=== PATIENT | male | born 1960 | race African-American/Black ===

== ENCOUNTER 2017-01-11 00:41 | Observation (INO) | payer OTHER ==
--- NOTE | 2017-01-11 00:50 | PDOC ---
History of Present Illness - General History Source: Patient Exam Limitations: No Limitations <Nico Berger - Last Filed: 01/11/17 01:11> <Lyssa Acuna - Last Filed: 01/11/17 07:07> <Fara Carlton - Last Filed: 01/11/17 20:28> - General Stated Complaint: CHEST PAIN - History of Present Illness Initial Comments: 01/11/17 01:09 The patient is a 56 year old male, with a significant PMH of diabetes who presents to the emergency department with chest pain beginning approximately 1 hour ago. The patient describes the pain as beginning in the epigastric area and radiating up through the midsternal chest area to his upper back, 5/10 in severity. The patient was hypotensive when he was found at home, and his glucose was at 44 upon presentation to the ED. He reports not eating dinner and was given oral glucose shortly after presentation. The patient denies shortness of breath, headache and dizziness. Denies fever, chills, nausea, vomit, diarrhea and constipation. Denies dysuria, frequency, urgency and hematuria. Allergies: Penicillins. Ibuprofen Past surgical history: None reported. Social history: Moderate smoker (5/day). Occasional alcohol use. No reported drug use. (Nico Berger) Past History <Nico Berger - Last Filed: 01/11/17 01:11> <Lyssa Acuna - Last Filed: 01/11/17 07:07> <Fara Carlton - Last Filed: 01/11/17 20:28> - Past Medical History Allergies/Adverse Reactions: Allergies Allergy/AdvReac Type Severity Reaction Status Date / Time ibuprofen Allergy Unknown Verified 01/11/17 15:15 Penicillins Allergy Verified 01/11/17 01:06 Home Medications: Ambulatory Orders Amlodipine Besylate 10 mg PO DAILY 01/11/17 Aspirin [ASA -] 81 mg PO DAILY 01/11/17 Gabapentin [Neurontin] 400 mg PO QID 01/11/17 Gemfibrozil [Lopid] 600 mg PO BID 01/11/17 Hydrocodone/Acetaminophen [[place]arrow 7.5-325 Tablet] 1 each PO DAILY 01/11/17 Metformin HCl 500 mg PO BID 01/11/17 Metoprolol Tartrate [Lopressor -] 25 mg PO DAILY 01/11/17 Review of Systems <Nico Berger - Last Filed: 01/11/17 01:11> <Lyssa Acuna - Last Filed: 01/11/17 07:07> <Fara Carlton - Last Filed: 01/11/17 20:28> - Review of Systems Comments:: 01/11/17 01:09 CONSTITUTIONAL: Absent: fever, chills, diaphoresis, generalized weakness, malaise, loss of appetite HEENT: Absent: rhinorrhea, nasal congestion, throat pain, throat swelling, difficulty swallowing, mouth swelling, ear pain, eye pain, visual Changes CARDIOVASCULAR: (+) Midsternal chest pain, radiates from epigastric area up to the upper back. Absent: syncope, palpitations, irregular heart rate, lightheadedness, peripheral edema RESPIRATORY: Absent: cough, shortness of breath, dyspnea with exertion, orthopnea, wheezing, stridor, hemoptysis GASTROINTESTINAL: Absent: abdominal pain, abdominal distension, nausea, vomiting, diarrhea, constipation, melena, hematochezia GENITOURINARY: Absent: dysuria, frequency, urgency, hesitancy, hematuria, flank pain, genital pain MUSCULOSKELETAL: Absent: myalgia, arthralgia, joint swelling SKIN: Absent: rash, itching, pallor HEMATOLOGIC/IMMUNOLOGIC: Absent: easy bleeding, easy bruising, lymphadenopathy, frequent infections ENDOCRINE: Absent: unexplained weight gain, unexplained weight loss, heat intolerance, cold intolerance NEUROLOGIC: Absent: headache, focal weakness or paresthesias, dizziness, unsteady gait, seizure, mental status changes, bladder or bowel incontinence PSYCHIATRIC: Absent: anxiety, depression, suicidal or homicidal ideation, hallucinations. (Nico Berger) *Physical Exam <Nico Berger - Last Filed: 01/11/17 01:11> <Lyssa Acuna - Last Filed: 01/11/17 07:07> <Fara Carlton - Last Filed: 01/11/17 20:28> - Vital Signs Last Vital Signs Temp Pulse Resp BP Pulse Ox 99.3 F 67 18 105/64 98 01/11/17 06:05 01/11/17 14:31 01/11/17 14:31 01/11/17 14:31 01/11/17 14:31 - Physical Exam Comments: 01/11/17 01:09 GENERAL: Well developed, well nourished. Awake and alert. No acute distress. HEENT: Normocephalic, atraumatic. PERRLA, EOMI. No conjunctival pallor. Sclera are non- icteric. Moist mucous membranes. Oropharynx is clear. NECK: Supple. Full ROM. No JVD. Carotid pulses 2+ and symmetric, without bruits. No thyromegaly. No lymphadenopathy. CARDIOVASCULAR: (+) Tachycardic. No murmurs, rubs, or gallops. Distal pulses are 2+ and symmetric. PULMONARY: No evidence of respiratory distress. Lungs clear to auscultation bilaterally. No wheezing, rales or rhonchi. ABDOMINAL: Soft. Non-tender. Non-distended. No rebound or guarding. No organomegaly. Normoactive bowel sounds. MUSCULOSKELETAL Normal range of motion at all joints. No bony deformities or tenderness. No CVA tenderness. EXTREMITIES: (+) +1 pitting edema bilaterally in lower extremities. No cyanosis. No clubbing. No calf tenderness. SKIN: Warm and dry. Normal capillary refill. No rashes. No jaundice. NEUROLOGICAL: Alert, awake, appropriate. Cranial nerves 2-12 intact. No deficits to light touch and temperature in face, upper extremities and lower extremities. No motor deficits in the in face, upper extremities and lower extremities. Normoreflexic in the upper and lower extremities. Normal speech. Toes are downgoing bilaterally. Gait is normal without ataxia. PSYCHIATRIC: Cooperative. Good eye contact. Appropriate mood and affect. (Nico Berger) ED Treatment Course - LABORATORY CBC & Chemistry Diagram: 01/11/17 01:16 01/11/17 01:58 <Lyssa Acuna - Last Filed: 01/11/17 07:07> - LABORATORY CBC & Chemistry Diagram: 01/11/17 01:16 01/11/17 08:41 <Fara Carlton - Last Filed: 01/11/17 20:28> - ADDITIONAL ORDERS Additional order review: Laboratory Results 01/11/17 01/11/17 01/11/17 08:41 08:41 08:41 Creatinine Cancelled Random Glucose Specific [place] Cancelled Lactic Acid 1.1 Creatine Kinase Troponin I Cancelled Urine Color Urine Appearance Urine pH Ur Specific [place] Urine Protein Urine Glucose (UA) Urine Ketones Urine Blood Urine Nitrite Urine Bilirubin Urine Urobilinogen Urine Butalbital Cancelled Ur Butalbital Confirm Cancelled Urine Opiates Screen Cancelled Meperidine Cancelled Urine Normeperidine Cancelled U Normeperidine GC/MS Cancelled Urine Codeine Cancelled U Codeine Confrm GC/MS Cancelled Urine Morphine Cancelled Morphine Confirm GC/MS Cancelled Urine Hydrocodone Cancelled Ur Hydrocodone (GC/MS) Cancelled Oxycodone Cancelled Urine Oxycodone Cancelled Ur Oxycodone GC/MS Cancelled Oxymorphone Confirm Cancelled U Oxycodone/Oxymorphon Cancelled Ur Methadone Cancelled Ur Methadone Confirm Cancelled Ur Hydromorphone Cancelled Ur Hydromorphone (GC/MS) Cancelled Urine Propoxyphene Cancelled U Propoxyphene/M GC/MS Cancelled Ur Barbiturates Screen Cancelled Urine Barbiturates Cancelled Ur Phencyclidine (PCP) Cancelled Ur PCP Confirm (GC/MS) Cancelled Amphetamines Cancelled Amphetamines Grp GC/MS Cancelled Urine Amphetamine Cancelled Ur Amphetamines, Quant Cancelled Methamphetamine Cancelled Methamphetamine GC/MS Cancelled Urine Amobarbital Cancelled Ur Amobarbital GC/MS Cancelled Urine Pentobarbital Cancelled U Pentobarbital GC/MS Cancelled Urine Phenobarbital Cancelled U Phenobarbital GC/MS Cancelled Urine Secobarbital Cancelled U Secobarbital GC/MS Cancelled Urine Alprazolam Cancelled U [place]-Alprazolam GC/MS Cancelled U Benzodiazepines Scrn Cancelled Urine Clonazepam Cancelled U 7-Amino Clonazep GC/MS Cancelled Ur Nordiazepam Cancelled Ur Nordiazepam GC/MS Cancelled Flurazepam Cancelled Flurazepam Confirm Cancelled Lorazepam Cancelled Urine Lorazepam Cancelled Ur Oxazepam Cancelled U Oxazepam Confm GC/MS Cancelled Urine Temazepam Cancelled Ur Temazepam (GC/MS) Cancelled Urine Triazolam Cancelled Ur Triazolam (GC/MS) Cancelled Meperidine (GC/MS) Cancelled Ur Meperidine Cancelled Cocaine & Metabolite Cancelled Urine Cocaine Cancelled Benzoylecgonine Cancelled Cannabinoids Cancelled Urine Cannabinoids Cancelled Urine Marijuana (THC) Cancelled Drug Test Comment Cancelled Urine Ethyl Alcohol Cancelled 01/11/17 01/11/17 08:41 08:41 Creatinine Random Glucose 140 H Specific [place] Lactic Acid Creatine Kinase 121 Troponin I < 0.02 Urine Color Yellow Urine Appearance Clear Urine pH 5.0 Ur Specific [place] 1.015 Urine Protein Negative Urine Glucose (UA) Negative Urine Ketones 1+ H Urine Blood Negative Urine Nitrite Negative Urine Bilirubin Negative Urine Urobilinogen 2.0 Urine Butalbital Ur Butalbital Confirm Urine Opiates Screen Meperidine Urine Normeperidine U Normeperidine GC/MS Urine Codeine U Codeine Confrm GC/MS Urine Morphine Morphine Confirm GC/MS Urine Hydrocodone Ur Hydrocodone (GC/MS) Oxycodone Urine Oxycodone Ur Oxycodone GC/MS Oxymorphone Confirm U Oxycodone/Oxymorphon Ur Methadone Ur Methadone Confirm Ur Hydromorphone Ur Hydromorphone (GC/MS) Urine Propoxyphene U Propoxyphene/M GC/MS Ur Barbiturates Screen Urine Barbiturates Ur Phencyclidine (PCP) Ur PCP Confirm (GC/MS) Amphetamines Amphetamines Grp GC/MS Urine Amphetamine Ur Amphetamines, Quant Methamphetamine Methamphetamine GC/MS Urine Amobarbital Ur Amobarbital GC/MS Urine Pentobarbital U Pentobarbital GC/MS Urine Phenobarbital U Phenobarbital GC/MS Urine Secobarbital U Secobarbital GC/MS Urine Alprazolam U [place]-Alprazolam GC/MS U Benzodiazepines Scrn Urine Clonazepam U 7-Amino Clonazep GC/MS Ur Nordiazepam Ur Nordiazepam GC/MS Flurazepam Flurazepam Confirm Lorazepam Urine Lorazepam Ur Oxazepam U Oxazepam Confm GC/MS Urine Temazepam Ur Temazepam (GC/MS) Urine Triazolam Ur Triazolam (GC/MS) Meperidine (GC/MS) Ur Meperidine Cocaine & Metabolite Urine Cocaine Benzoylecgonine Cannabinoids Urine Cannabinoids Urine Marijuana (THC) Drug Test Comment Urine Ethyl Alcohol 01/11/17 01:16 RBC 4.08 MCV 97.9 H MCHC 33.6 RDW 12.7 MPV 8.6 Neutrophils % 80.4 Lymphocytes % 16.6 Monocytes % 2.4 L Eosinophils % 0.2 Basophils % 0.4 - RADIOLOGY Radiology Studies Ordered: Category Date Time Status CHEST X-RAY PORTABLE* [RAD] Stat Radiology 01/11/17 01:01 Completed - Medications Given in the ED: ED Medications Discontinued Medications Generic Name Dose Route Start Last Admin Trade Name Inderjit PRN Reason Stop Dose Admin Aspirin 162 mg 01/11/17 01:00 01/11/17 05:08 Asa - PO 01/11/17 01:01 162 mg ONCE ONE Administration Sodium Chloride 1,000 ml 01/11/17 02:30 01/11/17 05:08 Normal Saline - IV 01/11/17 02:31 1,000 ml ONCE ONE Administration *DC/Admit/Observation/Transfer <Nico Berger - Last Filed: 01/11/17 01:11> <Lyssa Acuna - Last Filed: 01/11/17 07:07> <Fara Carlton - Last Filed: 01/11/17 20:28> Diagnosis at time of Disposition: Chest pain, Hypoglycemia - Attestations Scribe Attestion: 01/11/17 01:10 Documentation prepared by Nico Berger, acting as medical operations supervisor for Faar Carlton MD. (Nico Berger)
[2017-01-11] MEDS ORDERED: ASPIRIN 81 MG CHEWABLE TABLETS PO ONE (01:00)
[2017-01-11 01:24] LABS: BASOPHIL 0.4 % (0-2.0); EOSINOPHIL 0.2 % (0-4.5); MCH 32.9 pg (25.7-33.7); MCHC 33.6 g/dl (32.0-35.9); MEAN CELL VOLUME 97.9 fl (80-96); MEAN PLT VOLUME 8.6 fl (7.5-11.1); NEUTROPHILS 80.4 % (42.8-82.8); PLATELET COUNT 161 K/MM3 (134-434); RDW 12.7 % (11.9-15.9); WHITE BLOOD COUNT 17.8 K/mm3 (4.0-10.0)
[2017-01-11 01:37] LABS: INR 2.01 (0.82-1.09); PROTHROMBIN TIME (PATIENT) 22.4 SEC (9.98-11.88)
[2017-01-11] MEDS ORDERED: SODIUM CHLORIDE 0.9% 1000 ML INFUS.BAG IV ONE (02:30)
[2017-01-11 02:42] LABS: ALBUMIN 3.5 g/dl (3.4-5.0); ALK PHOS 242 U/L (45-117); ANION GAP 19 (8-16); BILIRUBIN,TOTAL 0.7 mg/dL (0.2-1.0); CALCIUM 8.9 mg/dL (8.5-10.1); CO2 17 mmol/L (21-32); CREATININE 1.3 mg/dL (0.7-1.3); GLUCOSE,RANDOM 120 mg/dL (74-106); SGOT/AST 150 U/L (15-37); SGPT/ALT 66 U/L (12-78); TOT PROT 6.6 g/dl (6.4-8.2)
[2017-01-11 02:44] LABS: CPK 128 IU/L (39-308); TROPONIN I < 0.02 ng/ml (0.00-0.05)
[2017-01-11 03:12] LABS: CHOLESTEROL 153 mg/dL (50-200)
[2017-01-11] MEDS ORDERED: ASPIRIN 81 MG CHEWABLE TABLETS ONE (05:08)
--- NOTE | 2017-01-11 07:09 | PDOC ---
*Physical Exam - Vital Signs Last Vital Signs Temp Pulse Resp BP Pulse Ox 99.3 F 105 H 15 108/68 99 01/11/17 06:05 01/11/17 06:05 01/11/17 06:05 01/11/17 06:05 01/11/17 06:05 <KalpanaLyssa - Last Filed: 01/11/17 07:10> - Vital Signs Last Vital Signs Temp Pulse Resp BP Pulse Ox 99.3 F 105 H 15 108/68 99 01/11/17 06:05 01/11/17 06:05 01/11/17 06:05 01/11/17 06:05 01/11/17 06:05 - Physical Exam General Appearance: Yes: Nourished, Appropriately Dressed Neck: negative: Tender Respiratory/Chest: positive: Lungs Clear, Normal Breath Sounds. negative: Chest Tender Cardiovascular: positive: Regular Rhythm, Regular Rate, S1, S2 Gastrointestinal/Abdominal: positive: Normal Bowel Sounds, Flat, Soft. negative : Tender Musculoskeletal: positive: Normal Inspection Integumentary: positive: Normal Color, Dry, Warm Neurologic: positive: dental assisting instructor II-XII NML intact, Fully Oriented, Alert <Donna Antonio - Last Filed: 01/11/17 08:27> ED Treatment Course - LABORATORY CBC & Chemistry Diagram: 01/11/17 01:16 01/11/17 01:58 - ADDITIONAL ORDERS Additional order review: Laboratory Results 01/11/17 01/11/17 01/11/17 01:58 01:58 01:58 PT with INR INR Sodium 137 Potassium 4.2 Chloride 101 Carbon Dioxide 17 L Anion Gap 19 H BUN 12 Creatinine 1.3 Creat Clearance w eGFR 56.90 Random Glucose 120 H Calcium 8.9 Magnesium Total Bilirubin 0.7 AST 150 H ALT 66 Alkaline Phosphatase 242 H Creatine Kinase 128 Troponin I < 0.02 B-Natriuretic Peptide Total Protein 6.6 Albumin 3.5 Triglycerides 113 Cholesterol 153 Total LDL Cholesterol 38 HDL Cholesterol 104 H Blood Type Antibody Screen 01/11/17 01/11/17 01/11/17 01:16 01:16 01:16 PT with INR 22.40 H INR 2.01 H Sodium Cancelled Potassium Cancelled Chloride Cancelled Carbon Dioxide Cancelled Anion Gap Cancelled BUN Cancelled Creatinine Cancelled Creat Clearance w eGFR Cancelled Random Glucose Cancelled Calcium Cancelled Magnesium Cancelled Total Bilirubin Cancelled AST Cancelled ALT Cancelled Alkaline Phosphatase Cancelled Creatine Kinase Cancelled Troponin I Cancelled B-Natriuretic Peptide Cancelled Total Protein Cancelled Albumin Cancelled Triglycerides Cancelled Cholesterol Cancelled Total LDL Cholesterol Cancelled HDL Cholesterol Cancelled Blood Type O POSITIVE Antibody Screen Negative 01/11/17 01:16 RBC 4.08 MCV 97.9 H MCHC 33.6 RDW 12.7 MPV 8.6 Neutrophils % 80.4 Lymphocytes % 16.6 Monocytes % 2.4 L Eosinophils % 0.2 Basophils % 0.4 - Medications Given in the ED: ED Medications Discontinued Medications Generic Name Dose Route Start Last Admin Trade Name Freq PRN Reason Stop Dose Admin Aspirin 162 mg 01/11/17 01:00 01/11/17 05:08 Asa - PO 01/11/17 01:01 162 mg ONCE ONE Administration Sodium Chloride 1,000 ml 01/11/17 02:30 01/11/17 05:08 Normal Saline - IV 01/11/17 02:31 1,000 ml ONCE ONE Administration <Lyssa Acuna - Last Filed: 01/11/17 07:10> - LABORATORY CBC & Chemistry Diagram: 01/11/17 01:16 01/11/17 01:58 - ADDITIONAL ORDERS Additional order review: Laboratory Results 01/11/17 01/11/17 01/11/17 01:58 01:58 01:58 PT with INR INR Sodium 137 Potassium 4.2 Chloride 101 Carbon Dioxide 17 L Anion Gap 19 H BUN 12 Creatinine 1.3 Creat Clearance w eGFR 56.90 Random Glucose 120 H Calcium 8.9 Magnesium Total Bilirubin 0.7 AST 150 H ALT 66 Alkaline Phosphatase 242 H Creatine Kinase 128 Troponin I < 0.02 B-Natriuretic Peptide Total Protein 6.6 Albumin 3.5 Triglycerides 113 Cholesterol 153 Total LDL Cholesterol 38 HDL Cholesterol 104 H Blood Type Antibody Screen 01/11/17 01/11/17 01/11/17 01:16 01:16 01:16 PT with INR 22.40 H INR 2.01 H Sodium Cancelled Potassium Cancelled Chloride Cancelled Carbon Dioxide Cancelled Anion Gap Cancelled BUN Cancelled Creatinine Cancelled Creat Clearance w eGFR Cancelled Random Glucose Cancelled Calcium Cancelled Magnesium Cancelled Total Bilirubin Cancelled AST Cancelled ALT Cancelled Alkaline Phosphatase Cancelled Creatine Kinase Cancelled Troponin I Cancelled B-Natriuretic Peptide Cancelled Total Protein Cancelled Albumin Cancelled Triglycerides Cancelled Cholesterol Cancelled Total LDL Cholesterol Cancelled HDL Cholesterol Cancelled Blood Type O POSITIVE Antibody Screen Negative 01/11/17 01:16 RBC 4.08 MCV 97.9 H MCHC 33.6 RDW 12.7 MPV 8.6 Neutrophils % 80.4 Lymphocytes % 16.6 Monocytes % 2.4 L Eosinophils % 0.2 Basophils % 0.4 - Medications Given in the ED: ED Medications Discontinued Medications Generic Name Dose Route Start Last Admin Trade Name Inderjit PRN Reason Stop Dose Admin Aspirin 162 mg 01/11/17 01:00 01/11/17 05:08 Asa - PO 01/11/17 01:01 162 mg ONCE ONE Administration Sodium Chloride 1,000 ml 01/11/17 02:30 01/11/17 05:08 Normal Saline - IV 01/11/17 02:31 1,000 ml ONCE ONE Administration <Donna Antonio - Last Filed: 01/11/17 08:27> Medical Decision Making - Medical Decision Making 01/11/17 07:10 Dr. Jahaira Staley was called at this time and the patient's case was discussed. ) <Lyssa Acuna - Last Filed: 01/11/17 07:10> - Medical Decision Making 01/11/17 07:08 56 yo male with h/o dm on metformin tobacco use, here with episode or hypoglycemia associated with chest pain. was signed out to me by dr Carlton, awaiting labs and cxr. pt states does have ho family h/o cad father with mi in 49 yo, pt has had stress test 15 yrs ago. see pcp jahaira canseco [phone]. no recent work up. plan to admit to tele for furrther workup and rule out. 01/11/17 07:12 d/w dr Staley pt pcp. pt with h/o lung ca/ nodules, being followed by onc. but also has h/o etoh use, substance use. will admit for cardiac workup, possible stress, and monitoring sugars. <Donna Antonio - Last Filed: 01/11/17 08:27> *DC/Admit/Observation/Transfer <Lyssa Acuna - Last Filed: 01/11/17 07:10> - Discharge Dispostion Admit: Yes <Donna Antonio - Last Filed: 01/11/17 08:27> Diagnosis at time of Disposition: Chest pain, Hypoglycemia - Referrals Referrals: Jahaira Staley MD [Primary Care Provider] -
[2017-01-11 09:34] LABS: CPK 121 IU/L (39-308); TROPONIN I < 0.02 ng/ml (0.00-0.05)
[2017-01-11 09:44] LABS: GLUCOSE,RANDOM 140 mg/dL (74-106)
--- NOTE | 2017-01-11 10:01 | HP ---
CHIEF COMPLAINT: chest pain PCP: SILKE Zaman (primary), Dr. Pratt (Neuro), Dr. Peña (GI) HISTORY OF PRESENT ILLNESS: Patient is a 56 year old male with a significant past medical history of HTN, diabetes mellitus, ETOH abuse, tobacco abuse, chronic back pain, Vit D deficiency, hypertriglyceridemia and hepatic steatosis. He presented to the emergency department with chest pain beginning approximately 1 hour prior to admission. The patient describes the pain as beginning in the epigastric area and radiating up through the midsternal chest area to his upper back, 5/10 in severity. The patient was hypotensive when he was found at home, and his glucose was at 44 upon presentation to the ED. He reports not eating dinner and was given oral glucose shortly after presentation. On exam, denies shortness of breath, headache and dizziness. Denies fever, chills, nausea, vomit, diarrhea and constipation. He states the chest pain has resolved. Patient is a poor historian and medical records obtained from PCP office and are in the patient chart. ER course was notable for: (1) Troponins negative x 2 (2) + marijuana (3) WBC 17.8 Recent Travel: denies PAST MEDICAL HISTORY: HTN, diabetes mellitus, ETOH abuse, tobacco abuse, chronic back pain, Vit D deficiency, hypertriglyceridemia and hepatic steatosis. PAST SURGICAL HISTORY: none reported Social History: Smoking: current everday smoker Alcohol: denies Drugs: denies Family History: Allergies Penicillins Allergy (Verified 01/11/17 01:06)/Ibuprofen HOME MEDICATIONS: Home Medications Medication Instructions Recorded NK [No Known Home Medication] 01/11/17 REVIEW OF SYSTEMS CONSTITUTIONAL: Absent: fever, chills, diaphoresis, generalized weakness, malaise, loss of appetite, weight change HEENT: Absent: rhinorrhea, nasal congestion, throat pain, throat swelling, difficulty swallowing, mouth swelling, ear pain, eye pain, visual changes CARDIOVASCULAR: Absent: chest pain, syncope, palpitations, irregular heart rate, lightheadedness , peripheral edema RESPIRATORY: Absent: cough, shortness of breath, dyspnea with exertion, orthopnea, wheezing, stridor, hemoptysis GASTROINTESTINAL: Absent: abdominal pain, abdominal distension, nausea, vomiting, diarrhea, constipation, melena, hematochezia GENITOURINARY: Absent: dysuria, frequency, urgency, hesitancy, hematuria, flank pain, genital pain MUSCULOSKELETAL: Absent: myalgia, arthralgia, joint swelling, back pain, neck pain SKIN: Absent: rash, itching, pallor HEMATOLOGIC/IMMUNOLOGIC: Absent: easy bleeding, easy bruising, lymphadenopathy, frequent infections ENDOCRINE: Absent: unexplained weight gain, unexplained weight loss, heat intolerance, cold intolerance NEUROLOGIC: Absent: headache, focal weakness or paresthesias, dizziness, unsteady gait, seizure, mental status changes, bladder or bowel incontinence PSYCHIATRIC: Absent: anxiety, depression, suicidal or homicidal ideation, hallucinations. PHYSICAL EXAMINATION GENERAL: Awake, alert, and fully oriented, in no acute distress - withdrawn, poor historian HEAD: Normal with no signs of trauma. EYES: Pupils equal, round and reactive to light, extraocular movements intact, sclera anicteric, conjunctiva clear. No lid lag. EARS, NOSE, THROAT: Ears normal, nares patent, oropharynx clear without exudates. Moist mucous membranes. NECK: Normal range of motion, supple without lymphadenopathy, JVD, or masses. LUNGS: Breath sounds equal, clear to auscultation bilaterally. No wheezes, and no crackles. No accessory muscle use. HEART: Regular rate and rhythm, normal S1 and S2 without murmur, rub or gallop. ABDOMEN: Soft, nontender, not distended, normoactive bowel sounds, no guarding, no rebound, no masses. No hepatomegaly or splenomegaly. MUSCULOSKELETAL: Normal range of motion at all joints. No bony deformities or tenderness. No CVA tenderness. UPPER EXTREMITIES: 2+ pulses, warm, well-perfused. No cyanosis. No clubbing. No peripheral edema. LOWER EXTREMITIES: 2+ pulses, warm, well-perfused. No calf tenderness. No peripheral edema. NEUROLOGICAL: Cranial nerves II-XII intact. Normal speech. Normal gait. SKIN: Warm, dry, normal turgor, no rashes or lesions noted, normal capillary refill. ASSESSMENT/PLAN: Patient is a 56 year old male with a significant past medical history of HTN, diabetes mellitus, ETOH abuse, tobacco abuse, chronic back pain, Vit D deficiency, hypertriglyceridemia and hepatic steatosis. He presented to the emergency department with chest pain beginning approximately 1 hour prior to admission. The patient describes the pain as beginning in the epigastric area and radiating up through the midsternal chest area to his upper back, 5/10 in severity. The patient was hypotensive when he was found at home, and his glucose was at 44 upon presentation to the ED. He reports not eating dinner and was given oral glucose shortly after presentation. On exam, denies shortness of breath, headache and dizziness. Denies fever, chills, nausea, vomit, diarrhea and constipation. He states the chest pain has resolved. Patient is a poor historian and medical records obtained from PCP office and are in the patient chart. As per signout out from [facility], it was reported to her by Dr. Staley (pt pcp ). that pt has history of lung ca/nodules, being followed by onc, hx of substance and h/o etoh use* However, Records retrieved from PCP office and records I received were from a different patient with same last name. Mr. Luis Carlos Gautam's records are in the chart and there is no history of lung cancer/ nodules indicated in his chart. will admit for cardiac workup, possible stress, and monitoring sugars. Cardiology consulted. Cardiology: Chest Pain Rule out ACS - acute A/P: Trop negative x 2, trend 3rd Given 162mg of ASA in ED Monitor on tele, cardiology consulted On ASA 81mg daily Hypertension - controlled On Metoprolol, Norvasc Monitor BP Hypertriglyceridemia - chronic On Lopid BID Lipid panel in a.m. Hematology: Leukocytosis: WBC 17.8, afebrile, no signs of sepsis Blood cultures ordered Endocrine: Hypoglycemia - now resolved Hx of DM2, monitor BGMs, Novolog sliding scale Type 2 diabetes mellitus Vitamin D deficiency - chronic Under the care of PCP, gets weekly vit d treatments GI: Hepatic steatosis - under care of PCP Monitor ast/alt Psyche: Tobacco dependence - will order nicotine patch + marijuana ETOH abuse A/P: no signs of withdrawal on exam CIWA score 0, monitor for any withdrawal symptoms F.E.N. Fluids: tolerating PO Electrolytes: monitor Nutrition: low sodium Prophylaxis: DVT: low risk OBS pt. GI: deferred Disposition: OBS. full code.
[2017-01-11 10:12] LABS: URINE APPEARANCE CLEAR; URINE BILIRUBIN NEGATIVE (NEGATIVE); URINE BLOOD NEGATIVE (NEGATIVE); URINE COLOR YELLOW; URINE GLUCOSE (UA) NEGATIVE (NEGATIVE); URINE KETONE 1+ (NEGATIVE); URINE LEUK ESTERASE NEGATIVE (NEGATIVE); URINE NITRITE NEGATIVE (NEGATIVE); URINE PROTEIN NEGATIVE (NEGATIVE)
[2017-01-11 11:17] VITALS: BMI 21.9
[2017-01-11 12:36] LABS: URINE MARIJUANA THC POSITIVE ng/ml (CUTOFF=50)
[2017-01-11] MEDS: NICOTINE 14 MG/24 HOURS TOPICAL PATCH TD SCH (18:07)
[2017-01-11] MEDS: INSULIN SLIDING SCALE (NOVOLOG) 1 VIAL SQ SCH ×2 (18:08→23:10)
[2017-01-11] MEDS: GEMFIBROZIL 600 MG TABLET (FP) PO SCH (18:08)
--- NOTE | 2017-01-11 21:03 | EKG ---
Test Reason : Blood Pressure : / mmHG Vent. Rate : 111 BPM Atrial Rate : 111 BPM P-R Int : 136 ms QRS Dur : 076 ms QT Int : 316 ms P-R-T Axes : 088 034 076 degrees QTc Int : 429 ms POOR DATA QUALITY, INTERPRETATION MAY BE ADVERSELY AFFECTED BASELINE ARTIFACTS SINUS TACHYCARDIA POSSIBLE LEFT ATRIAL ENLARGEMENT BORDERLINE ECG NO PREVIOUS ECGS AVAILABLE REPEAT EKG IF CLINICALLY INDICATED Confirmed by MARGY GREGG MD ([id number]) on 01/11/2017 9:03:50 PM Referred By: Confirmed By:MARGY GREGG MD
--- NOTE | 2017-01-11 21:44 | CON.CARD ---
Consult Consult Specialty:: cardiology Reason for Consultation:: chest pain - History of Present Illness Chief Complaint: Pt alert; asymptomatic presently. History of Present Illness: The patient is a 56 year old black male, with a significant PMH of diabetes, long-term cigarette smoker, who presents to the emergency department with chest pain beginning approximately 1 hour ago. The patient describes the pain as beginning in the epigastric area and radiating up through the midsternal chest area to his upper back, 5/10 in severity. The patient was hypotensive when he was found at home, and his glucose was at 44 upon presentation to the ED. He reports not eating dinner and was given oral glucose shortly after presentation. The patient denies shortness of breath, headache and dizziness. Denies fever, chills, nausea, vomit, diarrhea and constipation. Denies dysuria, frequency, urgency and hematuria. Allergies: Penicillins. Ibuprofen Past surgical history: None reported. Social history: Moderate smoker (5/day). Occasional alcohol use. No reported drug use. Denies prior hx of stress test or coronary angiogram. - History Source History Provided By: Patient, Medical Record Limitations to Obtaining History: Poor Historian - Past Medical History Endocrine: Yes: Diabetes Mellitus - Alcohol/Substance Use Hx Alcohol Use: No - Smoking History Smoking history: Current every day smoker Aproximately how many cigarettes per day: 5 Home Medications - Allergies Allergies/Adverse Reactions: Allergies Allergy/AdvReac Type Severity Reaction Status Date / Time ibuprofen Allergy Unknown Verified 01/11/17 15:15 Penicillins Allergy Verified 01/11/17 01:06 - Home Medications Home Medications: Ambulatory Orders Amlodipine Besylate 10 mg PO DAILY 01/11/17 Aspirin [ASA -] 81 mg PO DAILY 01/11/17 Gabapentin [Neurontin] 400 mg PO QID 01/11/17 Gemfibrozil [Lopid] 600 mg PO BID 01/11/17 Hydrocodone/Acetaminophen [[place] 7.5-325 Tablet] 1 each PO DAILY 01/11/17 Metformin HCl 500 mg PO BID 01/11/17 Metoprolol Tartrate [Lopressor -] 25 mg PO DAILY 01/11/17 Family Disease History - Family Disease History Family Disease History: Heart Disease: Father ([place] in his 40s) Review of Systems - Review of Systems Constitutional: reports: No Symptoms Eyes: reports: No Symptoms HENT: reports: No Symptoms Neck: reports: No Symptoms Cardiovascular: reports: Chest Pain Respiratory: reports: No Symptoms Gastrointestinal: reports: No Symptoms Genitourinary: reports: No Symptoms Breasts: reports: No Symptoms Reported Musculoskeletal: reports: No Symptoms Integumentary: reports: No Symptoms Neurological: reports: No Symptoms Endocrine: reports: Other (occasional weakness when glucose is low) Psychiatric: reports: No Symptoms - Risk Factors Known Risk Factors: Yes: Age, Diabetes Mellitus, Gender, Smoking, Other (family hx [place]) Vital Signs: Vital Signs Temperature 99.3 F 01/11/17 06:05 Pulse Rate 67 01/11/17 14:31 Respiratory Rate 18 01/11/17 14:31 Blood Pressure 105/64 01/11/17 14:31 O2 Sat by Pulse Oximetry (%) 98 01/11/17 14:31 Constitutional: Yes: Calm Eyes: Yes: WNL HENT: Yes: WNL Neck: Yes: WNL Respiratory: Yes: WNL Gastrointestinal: Yes: WNL Renal/: No: Anuria Cardiovascular: Yes: Tachycardia Heart Sounds: Yes: S1, S2 Murmur: Yes: Systolic Murmur, Grade 1 Musculoskeletal: Yes: WNL Extremities: Yes: WNL Edema: No Peripheral Pulses WNL: Yes Integumentary: Yes: WNL Neurological: Yes: WNL Psychiatric: Yes: WNL - Other Data Labs, Other Data: INR, PTT INR 2.01 (0.82-1.09) H 01/11/17 01:16 Troponin, BNP 01/11/17 17:58 Troponin I < 0.02 Troponin, BNP 01/11/17 17:58 Troponin I < 0.02 Imaging - Results EKG: Image Reviewed (sinus tachycardia) Problem List - Problems (1) Hypoglycemia Code(s): E16.2 - HYPOGLYCEMIA, UNSPECIFIED (2) Atypical chest pain Assessment/Plan: f/u TNI and EKG serially. Stress MIBI when stable (age; male; DM; hyperlipidemia; cigarettes; family hx). Code(s): R07.89 - OTHER CHEST PAIN (3) Hyperlipidemia Assessment/Plan: On fibrate. Code(s): E78.5 - HYPERLIPIDEMIA, UNSPECIFIED (4) Cigarette nicotine dependence Assessment/Plan: started on Nicotine patch. Code(s): F17.210 - NICOTINE DEPENDENCE, CIGARETTES, UNCOMPLICATED (5) Sinus tachycardia Assessment/Plan: hydration. maiintain glucose WNL. TSH. Code(s): R00.0 - TACHYCARDIA, UNSPECIFIED
[2017-01-11] MEDS ORDERED: METOPROLOL TARTRATE 25 MG TABLET (FP) PO SCH (22:00)
[2017-01-11] MEDS ORDERED: METOPROLOL TARTRATE 25 MG TABLET (FP) ONE (23:04)
[2017-01-11] MEDS ORDERED: INSULIN (NOVOLOG) ASPART 100 UNITS/ML 10ML VIAL ONE (23:12)
[2017-01-12] MEDS ORDERED: METOPROLOL TARTRATE 25 MG TABLET (FP) PO SCH (03:43)
[2017-01-12] MEDS ORDERED: PT OWN MED DRAWER 7, Y5N ONE (05:58)
[2017-01-12] MEDS: INSULIN SLIDING SCALE (NOVOLOG) 1 VIAL SQ SCH ×2 (06:06→13:13)
[2017-01-12] MEDS: GEMFIBROZIL 600 MG TABLET (FP) PO SCH (06:23)
[2017-01-12 08:14] LABS: BASOPHIL 0.3 % (0-2.0); EOSINOPHIL 1.4 % (0-4.5); MCH 32.6 pg (25.7-33.7); MCHC 34.2 g/dl (32.0-35.9); MEAN CELL VOLUME 95.3 fl (80-96); MEAN PLT VOLUME 8.5 fl (7.5-11.1); NEUTROPHILS 50.6 % (42.8-82.8); PLATELET COUNT 134 K/MM3 (134-434); RDW 12.5 % (11.9-15.9); WHITE BLOOD COUNT 4.7 K/mm3 (4.0-10.0)
[2017-01-12 09:11] LABS: ALBUMIN 3.5 g/dl (3.4-5.0); ALK PHOS 261 U/L (45-117); ANION GAP 11 (8-16); BILIRUBIN,TOTAL 0.8 mg/dL (0.2-1.0); CO2 27 mmol/L (21-32); CREATININE 0.8 mg/dL (0.7-1.3); GLUCOSE,RANDOM 120 mg/dL (74-106); MAGNESIUM 1.8 mg/dL (1.8-2.4); SGOT/AST 106 U/L (15-37); SGPT/ALT 67 U/L (12-78); TOT PROT 6.6 g/dl (6.4-8.2)
--- NOTE | 2017-01-12 09:50 | PN ---
Progress Note, Physician History of Present Illness: The patient is a 56 year old black male, with a significant PMH of diabetes, long-term cigarette smoker, who presents to the emergency department with chest pain beginning approximately 1 hour ago. The patient describes the pain as beginning in the epigastric area and radiating up through the midsternal chest area to his upper back, 5/10 in severity. The patient was hypotensive when he was found at home, and his glucose was at 44 upon presentation to the ED. He reports not eating dinner and was given oral glucose shortly after presentation. - Current Medication List Current Medications: Active Medications Amlodipine Besylate (Norvasc -) 10 mg PO DAILY [facility] Aripiprazole (Abilify) 2 mg PO DAILY [facility] Aspirin (Ecotrin -) 81 mg PO DAILY [facility] Folic Acid (Folic Acid -) 1 mg PO DAILY [facility] Gemfibrozil (Lopid -) 600 mg PO BID@0700,1630 [facility] Last Admin: 01/12/17 06:23 Dose: 600 mg Insulin Aspart (Novolog Vial Sliding Scale -) 1 vial SQ ACHS [facility] PRN Reason: Protocol Last Admin: 01/12/17 06:06 Dose: Not Given Metoprolol Tartrate (Lopressor -) 25 mg PO BID [facility] Nicotine (Nicoderm Patch -) 14 mg TD DAILY [facility] Last Admin: 01/11/17 18:07 Dose: 14 mg - Objective Vital Signs: Vital Signs Temperature 98.2 F 01/12/17 06:00 Pulse Rate 54 L 01/12/17 06:00 Respiratory Rate 20 01/12/17 06:00 Blood Pressure 113/68 01/12/17 06:00 O2 Sat by Pulse Oximetry (%) 99 01/12/17 06:36 Eyes: Yes: WNL, Conjunctiva Clear, EOM Intact HENT: Yes: WNL, Atraumatic, Normocephalic Neck: Yes: WNL, Supple, Trachea Midline Cardiovascular: Yes: WNL, Regular Rate and Rhythm Respiratory: Yes: WNL, Regular, CTA Bilaterally Gastrointestinal: Yes: WNL, Normal Bowel Sounds Genitourinary: Yes: WNL Musculoskeletal: Yes: WNL Extremities: Yes: WNL Edema: No Integumentary: Yes: WNL Neurological: Yes: WNL, Alert, Oriented ...Motor Strength: WNL Psychiatric: Yes: WNL Labs: CBC, BMP 01/12/17 05:46 01/12/17 05:46 INR, PTT INR 2.01 (0.82-1.09) H 01/11/17 01:16 Assessment/Plan - Problems (1) Hypoglycemia Code(s): E16.2 - HYPOGLYCEMIA, UNSPECIFIED (2) Atypical chest pain Assessment/Plan: f/u TNI and EKG serially. Stress MIBI pending RF (age; male; DM; hyperlipidemia; cigarettes; family hx). Code(s): R07.89 - OTHER CHEST PAIN (3) Hyperlipidemia Assessment/Plan: On fibrate. Code(s): E78.5 - HYPERLIPIDEMIA, UNSPECIFIED (4) Cigarette nicotine dependence Assessment/Plan: started on Nicotine patch. Code(s): F17.210 - NICOTINE DEPENDENCE, CIGARETTES, UNCOMPLICATED (5) Sinus tachycardia Assessment/Plan: hydration. maiintain glucose WNL. TSH. Code(s): R00.0 - TACHYCARDIA, UNSPECIFIED
[2017-01-12] MEDS ORDERED: FOLIC ACID 1 MG TABLET (FP) PO SCH (10:00)
[2017-01-12] MEDS ORDERED: ARIPiprazole 2 MG TABLET PO SCH (10:00)
[2017-01-12] MEDS ORDERED: amLODIPine BESYLATE 10 MG TABLET (FP) PO SCH (10:00)
[2017-01-12] MEDS ORDERED: ASPIRIN COATED 81 MG TABLET.EC PO SCH (10:00)
[2017-01-12 10:59] LABS: THYROID STIMULATING HORMONE 1.79 uIU/ml (0.358-3.74)
[2017-01-12] MEDS ORDERED: INSULIN (NOVOLOG) ASPART 100 UNITS/ML 10ML VIAL ONE (11:14)
--- NOTE | 2017-01-12 12:27 | DS ---
Physical Exam: SUBJECTIVE: Patient seen and examined at bedside. Feels well. Chest pain resolved while in ED and has not recurred. Denies SOB, TORIBIO, palpitations, dizziness or lightheadedness. Denies orthopnea, PND, lower extremity edema. OBJECTIVE: Vital Signs Period Temp Pulse Resp BP Sys/Bassett Pulse Ox Last 24 Hr 98.2 F-98.7 F 52-68 18-20 105-125/64-77 98-99 PHYSICAL EXAM GENERAL: The patient is awake, alert, and fully oriented, in no acute distress. HEAD: Normal with no signs of trauma. EYES: PERRL, extraocular movements intact, sclera anicteric, conjunctiva clear. LUNGS: Breath sounds equal, clear to auscultation bilaterally, no wheezes, no crackles, no accessory muscle use. HEART: Regular rate and rhythm, S1, S2 without murmur, rub or gallop. ABDOMEN: Soft, nontender, nondistended, normoactive bowel sounds, no guarding, no rebound, no hepatosplenomegaly, no masses. EXTREMITIES: 2+ pulses, warm, well-perfused, no edema. NEUROLOGICAL: Cranial nerves II through XII grossly intact. Normal speech, gait not observed. Laboratory Results - last 24 hr 01/11/17 01/11/17 01/11/17 11:20 17:49 17:58 WBC RBC Hgb Hct MCV MCH MCHC RDW Plt Count MPV Neutrophils % Lymphocytes % Monocytes % Eosinophils % Basophils % Sodium Potassium Chloride Carbon Dioxide Anion Gap BUN Creatinine Creat Clearance w eGFR POC Glucometer [phone] Random Glucose Hemoglobin A1c % Calcium Magnesium Total Bilirubin AST ALT Alkaline Phosphatase Troponin I < 0.02 Total Protein Albumin TSH Opiates Screen Negative Methadone Screen Negative Barbiturate Screen Negative Phencyclidine Screen Negative Ur Amphetamines Screen Negative MDMA (Ecstasy) Screen Negative Benzodiazepines Screen Negative Cocaine Screen Negative U Marijuana (THC) Screen Positive 01/11/17 01/12/17 01/12/17 23:10 05:46 05:46 WBC 4.7 D RBC 4.10 Hgb 13.4 Hct 39.1 MCV 95.3 MCH 32.6 MCHC 34.2 RDW 12.5 Plt Count 134 MPV 8.5 Neutrophils % 50.6 D Lymphocytes % 42.3 H D Monocytes % 5.4 D Eosinophils % 1.4 D Basophils % 0.3 Sodium 141 Potassium 3.9 Chloride 103 Carbon Dioxide 27 D Anion Gap 11 BUN 8 D Creatinine 0.8 D Creat Clearance w eGFR > 60 POC Glucometer [phone] Random Glucose 120 H Hemoglobin A1c % Calcium 9.0 Magnesium 1.8 Total Bilirubin 0.8 AST 106 H D ALT 67 Alkaline Phosphatase 261 H Troponin I Total Protein 6.6 Albumin 3.5 TSH 1.79 Opiates Screen Methadone Screen Barbiturate Screen Phencyclidine Screen Ur Amphetamines Screen MDMA (Ecstasy) Screen Benzodiazepines Screen Cocaine Screen U Marijuana (THC) Screen 01/12/17 01/12/17 01/12/17 05:46 05:46 05:50 WBC RBC Hgb Hct MCV MCH MCHC RDW Plt Count MPV Neutrophils % Lymphocytes % Monocytes % Eosinophils % Basophils % Sodium Potassium Chloride Carbon Dioxide Anion Gap BUN Creatinine Creat Clearance w eGFR POC Glucometer 137 Random Glucose Hemoglobin A1c % 6.0 Calcium Magnesium Total Bilirubin AST ALT Alkaline Phosphatase Troponin I Total Protein Albumin TSH Cancelled Opiates Screen Methadone Screen Barbiturate Screen Phencyclidine Screen Ur Amphetamines Screen MDMA (Ecstasy) Screen Benzodiazepines Screen Cocaine Screen U Marijuana (THC) Screen HOSPITAL COURSE: Date of Admission:01/11/17 Date of Discharge: 01/12/17 Initial hospital course 56-year old male with a significant past medical history of HTN, HLD, NIDDM, hepatic steatosis, ETOH abuse, chronic back pain, and current smoker. He presented to the emergency department with chest pain beginning approximately 1 hour prior to admission. The patient described the pain as beginning in the epigastric area and radiating up through the midsternal chest area to his upper back, 5/10 in severity. The patient was hypotensive when he was found at home, and his glucose was at 44 upon presentation to the ED. He reported not eating dinner and was given oral glucose shortly after presentation. On exam in ED, patient denied shortness of breath, headache and dizziness. Denied fever, chills, nausea, vomit, diarrhea and constipation. He reported the chest pain had resolved. ER course (1) Troponins negative x 2 (2) + marijuana (3) WBC 17.8 Subsequent hospital course Atypical chest pain --ACS ruled out: troponins negative x 3; CXR unremarkable; ECG not suggestive of acute ischemic event; Echo: LV normal, RV normal, moderate MR; mild TR; trace to mild PI; Myoview Perfusion Scan: baseline ECG showed sinus leticia otherwise wnl; at peak stress no diagnostic ECG changes; nuclear results: normal perfusion scan with no evidence of stress-induced ischemia; EF 54% --continued on metoprolol, ASA Hypertension --BP was well-controlled --continued on metoprolol, amlodipine Hypertriglyceridemia --continued on gemfibrozil Leukocytosis, resolved --WBC today 4.7k NIDDM Hypoglycemia, resolved --Novolog sliding scale coverage h/o ETOH abuse Hepatic steatosis --mild elevation in AST and Alk phos --no s/s of alcohol withdrawal Tobacco dependence --Nicoderm patch Minutes to complete discharge: 35 Discharge Summary Reason For Visit: HYPOGLYCEMIA/CHEST PAIN Current Active Problems Atypical chest pain (Acute) Chest pain (Acute) Cigarette nicotine dependence (Acute) Hyperlipidemia (Acute) Hypoglycemia (Acute) Sinus tachycardia (Acute) Condition: Improved - Instructions Diet, Activity, Other Instructions: It is very important that you make an appointment to see your primary care provider within 72 hours of your discharge. You should tell Dr. Staley that you came to the hospital for chest pain and that you had a full cardiac workup. A copy of your discharge summary will be sent to Dr. Staley. A prescription has been sent to your pharmacy for a Nicoderm patch x 10 days. You are encouraged not to smoke and to use the patch. If you do smoke, do not use the patch. Return to the emergency department for any new or worsening symptoms. Referrals: Sandra Staley MD [Primary Care Provider] - 1 Week Disposition: HOME - Home Medications Comprehensive Discharge Medication List: Ambulatory Orders Amlodipine Besylate 10 mg PO DAILY 01/11/17 Aspirin [ASA -] 81 mg PO DAILY 01/11/17 Gabapentin [Neurontin] 400 mg PO QID 01/11/17 Gemfibrozil [Lopid] 600 mg PO BID 01/11/17 Hydrocodone/Acetaminophen [[place] 7.5-325 Tablet] 1 each PO DAILY 01/11/17 Metformin HCl 500 mg PO BID 01/11/17 Metoprolol Tartrate [Lopressor -] 25 mg PO DAILY 01/11/17 This patient is new to me today: Yes Date on this admission: 01/12/17 Emergency Visit: Yes ED Registration Date: 01/11/17 Care time: The patient presented to the Emergency Department on the above date and was hospitalized for further evaluation of their emergent condition. Critical Care patient: No - Discharge Referral Referred to [facility] No
[2017-01-12] MEDS: NICOTINE 14 MG/24 HOURS TOPICAL PATCH TD SCH (13:07)
[2017-01-12 14:53] VITALS: BP 107/63; PULSE 51; TEMP 98.4
--- NOTE | 2017-01-13 14:41 | EKG ---
Test Reason : Blood Pressure : / mmHG Vent. Rate : 050 BPM Atrial Rate : 050 BPM P-R Int : 142 ms QRS Dur : 086 ms QT Int : 436 ms P-R-T Axes : 073 034 057 degrees QTc Int : 397 ms SINUS BRADYCARDIA WITH OCCASIONAL PREMATURE VENTRICULAR COMPLEXES OTHERWISE NORMAL ECG WHEN COMPARED WITH ECG OF 11-JAN-2017 01:00, PREMATURE VENTRICULAR COMPLEXES ARE NOW PRESENT VENT. RATE HAS DECREASED BY 61 BPM Confirmed by DIANDRA MAE, POP ([id number]) on 01/13/2017 2:41:15 PM Referred By: [employer] CARR Confirmed By:POP JIM MD
== END 2017-01-12 17:23 | disposition home or self-care (01) ==
LOC: JER 00:41 → JERBED 08:30 → INTOOBSV 08:55 → UNDOADMOB 08:55 → JERBED 08:55 → J4W 21:15 → JERBED 21:15
PROVIDERS: ADMIT Internal Medicine; ATTEND Nurse Practitioner Acute Care
DX: R07.89 Other chest pain (principal); E16.2 Hypoglycemia, unspecified; E78.5 Hyperlipidemia, unspecified; R00.0 Tachycardia, unspecified; E11.9 Type 2 diabetes mellitus without complications; I10 Essential (primary) hypertension; F17.210 Nicotine dependence, cigarettes, uncomplicated; F10.21 Alcohol dependence, in remission; M54.9 Dorsalgia, unspecified; G89.29 Other chronic pain; D72.829 Elevated white blood cell count, unspecified; E55.9 Vitamin D deficiency, unspecified; E78.1 Pure hyperglyceridemia; K83.1 Obstruction of bile duct; Z86.39 Personal history of other endocrine, nutritional and metabolic disease; Z88.0 Allergy status to penicillin; Z88.6 Allergy status to analgesic agent; Z79.84 Long term (current) use of oral hypoglycemic drugs
CPT/HCPCS: 36415; 71010-TC; 78452-TC; 80053; 80061; 80307; 81003; 82947; 83036; 83605; 83721; 83735; 84443; 84484; 85025; 85610; 86850; 86900; 86901; 93005; 93010; 93017; 93306-TC; 99285-25; A9502; G0378